=== PATIENT | female | born 1965 | race Caucasian/White ===

== ENCOUNTER → 2016-10-31 | Outpatient (CLI) | payer OTHER | LOC: FIMAGING 11:06 | PROVIDERS: ATTEND Obstetrics & Gynecology Gynecology | DX: Z12.31 Encounter for screening mammogram for malignant neoplasm of breast (principal); R10.2 Pelvic and perineal pain; N80.0 Endometriosis of uterus | CPT/HCPCS: G0202 ==

== ENCOUNTER 2017-07-25 09:45 | Emergency (ER) | payer OTHER ==
--- NOTE | 2017-07-25 10:04 | CPEKG ---
Heart Rate: 71 RR Interval: 845 P-R Interval: 148 QRSD Interval: 92 QT Interval: 392 QTC Interval: 426 P [place]: 54 QRS [place]: 59 T Wave [place]: -65 EKG Severity - ABNORMAL ECG - EKG Impression: SINUS RHYTHM EKG Impression: ABNORMAL T, CONSIDER ISCHEMIA, INFERIOR LEADS Electronically Signed By: Karen Gilman 25-Jul-2017 14:46:43
[2017-07-25 10:33] LABS: PLATELET COUNT 222 10^3/uL (150-400)
--- NOTE | 2017-07-25 10:34 | EDPHY ---
H & P Stated Complaint: Midsternal CP worsening x 10 days, pt concerned PE Time Seen by Provider: 07/25/17 10:06 HPI/ROS: CHIEF COMPLAINT: Chest pain HISTORY OF PRESENT ILLNESS: 52-year-old female with sarcoidosis presents with chest pain. Onset of intermittent chest pain 8 days ago. The pain is a pressure-like sensation in the left chest. The pain tends to occur randomly and is not associated with exertion. The pain does not increase with deep inspiration or movement. The most recent episode of pain started 2 days ago and has been persistent since then. No associated symptoms. Cardiac CT scan 3 years ago: Calcium score of 0. No recent illness, cough or fever. REVIEW OF SYSTEMS: complete 10 point ROS negative except at noted in the HPI - Medical/Surgical History Hx Asthma: No Hx Chronic Respiratory Disease: No Hx Diabetes: No Hx Cardiac Disease: No Hx Renal Disease: No Hx Cirrhosis: No Hx Alcoholism: No Hx HIV/AIDS: No Hx Splenectomy or Spleen Trauma: No Other PMH: sarcodosis, tosillectomy, closed reduction fibula, hand sx x2, cervical spine fusion, - Social History Smoking Status: Never smoked Alcohol Use: Sober Drug Use: None Additional Social History: - Physical Exam Exam: General Appearance: Alert, pleasant Eyes: Pupils equal and round, no conjunctival pallor or injection ENT, Mouth: Mucous membranes moist Neck: Normal inspection Respiratory: Tender over the left anterior chest wall that reproduces the pain , lungs are clear to auscultation Cardiovascular: Regular rate and rhythm, 2/6 diastolic murmur Gastrointestinal: Abdomen is soft and nontender Neurological: A&O, nonfocal, normal gait Skin: Warm and dry Extremities: Nontender, no pedal edema Psychiatric: Mood and affect normal Constitutional: Initial Vital Signs Temperature (C) 37.0 C 07/25/17 09:48 Heart Rate 72 07/25/17 09:48 Respiratory Rate 16 07/25/17 09:48 Blood Pressure 128/74 H 07/25/17 09:48 O2 Sat (%) 97 07/25/17 09:48 O2 Delivery Mode Room Air Allergies/Adverse Reactions: Sulfa (Sulfonamide Antibiotics) Allergy (Verified 03/08/15 15:18) Home Medications: Medication Instructions Recorded Estrogens,Conjugated 07/25/17 Minocycline HCl 07/25/17 Medical Decision Making - Diagnostics EKG Interpretation: EKG interpreted by me reveals normal sinus rhythm, rate 71, T-wave inversions in the inferior leads. Interpretation: Abnormal EKG Imaging Results: Imaging Impressions Chest X-Ray 07/25/17 10:07 Impression: No acute pulmonary disease. Findings and recommendations discussed with emergency department physician, Karen Gilman MD at 1020 hours on July 25, 2017. Final report concurs with initial preliminary interpretation. Chest/Thorax CTA 07/25/17 11:00 Impression: 1. No definite pulmonary thromboemboli. 2. No aortic aneurysm or dissection. 3. Mediastinal and bilateral hilar adenopathy consistent with sarcoidosis, similar to previous study. 4. Multiple 2-5 mm stable pulmonary nodules including right lower lobe cylindrical bronchiectasis, similar to previous study. 5. No acute pneumonia, pleural effusion, or pneumothorax. Findings and recommendations discussed with emergency department physician, Karen Gilman MD at 1225 hours on July 25, 2017. Final report concurs with initial preliminary interpretation. A test result has been communicated to a licensed care provider and documented in the [facility] Critical Result system on 07/25/2017 12:29, Message ID [id number]. Imaging: Discussed imaging studies w/ call or contact centre manager Radiologist, I viewed and interpreted images myself ED Course/Re-evaluation: Mirian presents with intermittent and prolonged chest pressure. Stat EKG reveals T-wave inversions in the inferior leads. I-STAT troponin is normal. Unclear etiology of the EKG T-wave inversions, but given that the chest pain has been present for greater than 36 hr, and troponin is normal I doubt that the pain is related to cardiac ischemia. I consulted with Dr. Nayak, will order an echocardiogram. ECHO per Dr. Nayak: moderate pulmonary HTN, mitral regurg, ONOFRE. CT pulmonary angiogram ordered to rule out pulmonary embolism or other serious etiology for chest pain. Fortunately, there is no evidence of pulmonary embolism. Physical exam suggests costochondritis, given point tenderness over the left anterior chest wall. She has a history of GERD and is unable to tolerate NSAID. Suggest Tylenol for pain. She will follow up with Cardiology for further evaluation. She will also follow up with Dr. Caballero in the office for further evaluation of pulmonary hypertension. I feel that she is safe and stable for discharge home. Differential Diagnosis: Differential diagnosis includes though it is not limited to pneumonia, pneumothorax, pulmonary embolism, aortic dissection, pericarditis, acute coronary syndrome. - Data Points Laboratory Results: Laboratory Results 07/25/17 10:00 07/25/17 10:00 07/25/17 07/25/17 07/25/17 10:03 10:00 10:00 WBC RBC Hgb Hct MCV MCH MCHC RDW Plt Count MPV Neut % (Auto) Lymph % (Auto) Pope % (Auto) Eos % (Auto) Baso % (Auto) Nucleat RBC Rel Count Absolute Neuts (auto) Absolute Lymphs (auto) Absolute Monos (auto) Absolute Eos (auto) Absolute Basos (auto) Absolute Nucleated RBC Immature Gran % Immature Gran # D-Dimer < 0.27 ug/mLFEU ug/mLFEU (0.00-0.50) Sodium 139 mEq/L mEq/L (135-145) Potassium 4.2 mEq/L mEq/L (3.3-5.0) Chloride 104 mEq/L mEq/L (97-110) Carbon Dioxide 25 mEq/l mEq/l (22-31) Anion Gap 10 mEq/L mEq/L (8-16) BUN 19 mg/dL mg/dL (7-23) Creatinine 1.2 mg/dL H mg/dL (0.6-1.0) Estimated GFR 47 Glucose 84 mg/dL mg/dL (70-100) Calcium 8.9 mg/dL mg/dL (8.5-10.4) POC Troponin I 0.01 ng/mL ng/mL (0.00-0.08) NT-Pro-B Natriuret Pep 352 pg/mL H pg/mL (0-125) 07/25/17 10:00 WBC 4.47 10^3/uL 10^3/uL (3.80-9.50) RBC 5.00 10^6/uL 10^6/uL (4.18-5.33) Hgb 14.9 g/dL g/dL (12.6-16.3) Hct 44.2 % % (38.0-47.0) MCV 88.4 fL fL (81.5-99.8) MCH 29.8 pg pg (27.9-34.1) MCHC 33.7 g/dL g/dL (32.4-36.7) RDW 12.6 % % (11.5-15.2) Plt Count 222 10^3/uL 10^3/uL (150-400) MPV 9.9 fL fL (8.7-11.7) Neut % (Auto) 54.1 % % (39.3-74.2) Lymph % (Auto) 26.4 % % (15.0-45.0) Pope % (Auto) 14.8 % H % (4.5-13.0) Eos % (Auto) 3.6 % % (0.6-7.6) Baso % (Auto) 0.9 % % (0.3-1.7) Nucleat RBC Rel Count 0.0 % % (0.0-0.2) Absolute Neuts (auto) 2.42 10^3/uL 10^3/uL (1.70-6.50) Absolute Lymphs (auto) 1.18 10^3/uL 10^3/uL (1.00-3.00) Absolute Monos (auto) 0.66 10^3/uL 10^3/uL (0.30-0.80) Absolute Eos (auto) 0.16 10^3/uL 10^3/uL (0.03-0.40) Absolute Basos (auto) 0.04 10^3/uL 10^3/uL (0.02-0.10) Absolute Nucleated RBC 0.00 10^3/uL 10^3/uL (0-0.01) Immature Gran % 0.2 % % (0.0-1.1) Immature Gran # 0.01 10^3/uL 10^3/uL (0.00-0.10) D-Dimer Sodium Potassium Chloride Carbon Dioxide Anion Gap BUN Creatinine Estimated GFR Glucose Calcium POC Troponin I NT-Pro-B Natriuret Pep Medications Given: Discontinued Medications Sodium Chloride (Ns) 500 mls @ 1,000 mls/hr IV EDNOW ONE PRN Reason: Protocol Stop: 07/25/17 11:29 Last Admin: 07/25/17 11:06 Dose: 500 mls Point of Care Test Results: Chemistry 07/25/17 10:03 POC Troponin I 0.01 ng/mL ng/mL (0.00-0.08) Departure - Departure Disposition: Home, Routine, Self-Care Clinical Impression: Chest pain Qualifiers: Chest pain type: other chest pain Qualified Code(s): R07.89 - Other chest pain Condition: Good Instructions: Chest Pain (ED), Pulmonary Arterial Hypertension (ED) Additional Instructions: Your ECHO shows pulmonary hypertension and mitral valve prolapse. Please f/u with cardiology. Referrals: Krys Hsu MD [Primary Care Provider] - As per Instructions Nghia Nayak MD [Medical Doctor] - As per Instructions (Call to make an appointment.)
[2017-07-25] MEDS ORDERED: NS 500 ML IV ONE (11:00)
[2017-07-25] MEDS ORDERED: IOPAMIDOL (ISOVUE 370) 100 ML BTL IV ONE (11:43)
--- NOTE | 2017-07-25 12:29 | ECHO ---
[email or web address] [address] [address] Main: [phone] Fax: Transthoracic Echocardiogram Name: BRUNA MEJIA MR#: [id number] Study Date: 07/25/2017 Study Time: 11:23 AM Date of : 1965 Age: 52 year(s) Height: 165.1 cm (65 in.) Weight: 63.5 kg (140 lb.) BSA: 1.7 m2 Gender: Female Examination: Echo Indication: Chest Pain Image Quality: Contrast: Requested by: Karen Gilman BP: 125 mmHg/82 mmHg Heart Rate: Rhythm: Indication: Chest Pain Procedure Staff Customer Success Director: Félix Martin RDCS Reading Physician: Nghia Nayak MD Requesting Provider: Conclusions: The patient was in sinus rhythm at the time of the study. Normal left ventricle size and systolic function. LVEF estimated at 60-65% and calculated at 63% by Bradshaw's. No evidence of segmental wall motion abnormalities . Grade 1 diastolic dysfunction. Normal right-sided chamber dimensions. Severe left atrial enlargement. Myxomatous appearing mitral valve with bileaflet anterior greater than posterior leaflet prolapse. This is associated with moderate eccentric regurgitation that hugs the lateral wall of the atrium. The remainder of the cardiac valves appear to be normal in structure and function. No evidence of pericardial effusion. Measurements: Chambers Valvular Assessment AV/MV Valvular Assessment TV/PV Normal Normal Normal Name Value Range Name Value Range Name Value Range Ao Argelia (MM): 3.4 cm (2.2 cm-3.7 AV Vmax: 1.21 m/s (1 m/s-1.7 TR Vmax: 3.12 mm/s ( - ) cm) m/s) TR PGmax: 39 mmHg ( - ) IVSd (2D): 0.8 cm (0.6 cm-1.1 AV maxP mmHg ( - ) syst. PAP: 44 mmHg ( - ) cm) LVOT Vmax: 0.84 m/s (0.7 m/s-1.1 PV Vmax: 0.71 m/s (0.6 m/s-0.9 LVDd (2D): 4.6 cm (3.9 cm-5.3 m/s) m/s) cm) MV E Vmax: 0.70 m/s ( - ) PV PGmax: 2 mmHg ( - ) LVDs (2D): 3.0 cm (2.1 cm-4 MV A Vmax: 0.74 m/s ( - ) cm) MV E/A: 0.95 ( - ) LVPWd (2D): 1.0 cm ( - ) MV maxP mmHg ( - ) LVEF (2D): 63 (>=54 %) MV meanP mmHg ( - ) Continued Measurements: Chambers Valvular Assessment AV/MV Valvular Assessment TV/PV Name Value Name Value Name Value LADs Lon.7 cm MV Annulus: 3.2 cm CVP (est.): 5 mmHg LA Area: 26.7 cm2 MV E/E' Septal: 11.70 Patient: BRUNA MEJIA Study Date: 07/25/2017 Page 1 of 2 11:23 AM LA Volume: 93 ml MV E/E' Lateral: 15.90 LA Volume Index: 54.7 ml/m2 MV VTI: 29.00 cm MR ERO: 0.130 cm2 MR PISA radius: 6 mm MR Reg. Volume: 28 ml MR Reg. Fraction: 12 % Findings: Left Ventricle: Normal size left ventricle. No LV hypertrophy. Normal global systolic LV function. EF is 63 %. No regional wall motion abnormality. Diastolic dysfunction is present. . Right Ventricle: Normal size right ventricle. Normal RV function. Left Atrium: The left atrium is moderately to severely dilated. Right Atrium: The right atrium is moderately dilated. Mitral Valve: Moderate mitral valve regurgitation is present. There is moderate prolapse of the anterior leaflet of the mitral valve. Aortic Valve: The aortic valve is tri-leaflet. The aortic valve is normal in appearance. Tricuspid Valve: The tricuspid valve is normal in appearance and function. Pulmonic Valve: The pulmonic valve is normal in appearance and function. Aorta: The aorta is normal. Pericardium: No pericardial effusion. (No Signature Object) Patient: BRUNA MEJIA Study Date: 07/25/2017 Page 2 of 2 11:23 AM [id number]
[2017-07-25 13:02] VITALS: BP 114/86
== END 2017-07-25 13:01 | disposition home or self-care (01) ==
DX: R07.89 Other chest pain (principal); E86.9 Volume depletion, unspecified
CPT/HCPCS: 84484-PO; Q9967

== ENCOUNTER 2017-08-26 09:45 | Day surgery (SDC) | payer OTHER ==
[2017-08-26] MEDS ORDERED: MIDAZOLAM 2 MG/2 ML VIAL IVP ONE (09:50)
[2017-08-26] MEDS ORDERED: NS 500 ML IV ONE (09:50)
[2017-08-26] MEDS ORDERED: BENZOCAINE UNIT DOSE SPRAY HURRICAINE MM ONE (09:50)
[2017-08-26] MEDS ORDERED: fentaNYL 100 MCG/2 ML INJ IVP ONE (09:50)
[2017-08-26] MEDS ORDERED: fentaNYL 100 MCG/2 ML INJ IVP PRN (10:58)
[2017-08-26] MEDS ORDERED: PROMETHAZINE HCL 25 MG/ML INJ IVP PRN (10:58)
[2017-08-26] MEDS ORDERED: NALOXONE HCL 0.4 MG/ML INJ IVP PRN (10:58)
[2017-08-26] MEDS ORDERED: DEXAMETHASONE 4 MG/ML VIAL IVP PRN (10:58)
[2017-08-26] MEDS ORDERED: NS 500 ML IV PRN (10:58)
[2017-08-26] MEDS ORDERED: ONDANSETRON 4 MG/2 ML VIAL IVP PRN (10:58)
--- NOTE | 2017-08-26 10:58 | PDANEPAE ---
ANE Past Medical History - Cardiovascular History Hx Hypertension: No Hx Arrhythmias: No Hx Coronary Artery / Peripheral Vascular Disease: No Hx CHF / Valvular Disease: No Cardiovascular History Comment: MITRAL VALVE PROLAPSE - Pulmonary History Hx COPD: No Hx Asthma/Reactive Airway Disease: No Hx Recent Upper Respiratory Infection: No Hx Oxygen in Use at Home: No Hx Sleep Apnea: No - Neurologic History Hx Cerebrovascular Accident: No Hx Seizures: No Hx Dementia: No - Endocrine History Hx Diabetes: No Obesity: no - Renal History Hx Renal Disorders: No - Liver History Hx Hepatic Disorders: No - Neurological & Psychiatric Hx Hx Neurological and Psychiatric Disorders: No Neurological / Psychiatric History Comment: LEXAPRO - Cancer History Hx Cancer: No - Congenital Disorder History Hx Congenital Disorders: No - GI History Hx Gastrointestinal Disorders: No - Other Health History Other Health History: NEG - Chronic Pain History Chronic Pain: No - Surgical History Prior Surgeries: BRONCHOSCOPY. COLONSOCOPY. TONSILLECTOMY. JAW PROCEDURE. FX FEMUR ANE Review of Systems Review of Systems: ANE Patient History - Allergies Allergies/Adverse Reactions: Sulfa (Sulfonamide Antibiotics) Allergy (Verified 08/20/17 10:40) Rash - Home Medications Home Medications: Calcium Carbonate [Tums 500MG (*)] 500 mg PO DAILY PRN 08/20/17 [Last Taken Unknown] Herbals/Supplements -Info Only 1 ea PO DAILY 08/20/17 [Last Taken Unknown] Magnesium Oxide [Magnesium Oxide 400 mg (*)] 400 mg PO Q2D@21 08/20/17 [Last Taken Unknown] Ranitidine HCl [Zantac] 150 mg PO HS 08/20/17 [Last Taken Unknown] - Anes Hx Anes Hx: no prior problems - Smoking Hx Smoking Status: Never smoked ANE Labs/Vital Signs - Vital Signs Height: 168 cm Weight: 60 kg ANE Physical Exam - Airway Neck exam: FROM Mallampati Score: Class 1 Mouth exam: normal dental/mouth exam - Pulmonary Pulmonary: no respiratory distress, no rales or rhonchi, clear to auscultation - Cardiovascular Cardiovascular: irregularly irregular - ASA Status ASA Status: III ANE Anesthesia Plan Anesthesia Plan: GA with mask
[2017-08-26] MEDS ORDERED: PROPOFOL 200 MG/20 ML VIAL ONE (11:00)
--- NOTE | 2017-08-26 11:10 | PDGENHP ---
History & Physical Chief Complaint: Mitral regurgitation, chest pain. History of Present Illness: Atypical chest. TTE consistent with mod-severe MR. Pertinent Past, Social, Family History: Pulmonary sarcoidosis. Relevant Physical Exam: 2/6 MR murmur. Cardiorespiratory Assessment: Stable for TIFFANY.
--- NOTE | 2017-08-26 11:54 | POSTANESTH ---
Post Anesthetic Evaluation Cardiovascular Status: Normal, Stable Respiratory Status: Normal, Stable, Similar to Pre-op Cond. Level of Consciousness/Mental Status: Can Participate in Eval, Mildly Sleepy, Arousable Pain Control: Adequate, Prn Tx Ordered Nausea/Vomiting Control: Adequate, Prn Tx Ordered Complications Possibly Related to Anesthesia: None Noted
--- NOTE | 2017-09-20 15:58 | ECHO ---
[email or web address] [address] [address] Main: [phone] Fax: Transesophageal Echocardiography Name: BRUNA MEJIA MR#: [id number] Study Date: 08/26/2017 Study Time: 10:56 AM Date of : 1965 Age: 52 year(s) Height: ( ) Weight: ( ) BSA: Gender: Female Examination: TIFFANY Indication: Evaluate mitral valve Image Quality: Adequate Contrast: Requested by: Nghia Nayak Heart Rate: Rhythm: BP: / Procedure Staff Alteration Manager: Toshia Weiner RDCS Reading Physician: Nghia Nayak MD Requesting Provider: TIFFANY Exam Details Patient Consent: Risks, alternatives of procedure explained to patient, informed consent obtained. Conclusions: The patient was in sinus rhythm at the time of the study. Normal left ventricular size and systolic function. LVEF estimated at 60-65% without segmental wall motion abnormalities. Normal RV and RA dimensions. The left atrium appears to be severely dilated. The interatrial septum is bowed to the right suggesting elevated left atrial pressures. There is a color flow Doppler signal high in the interatrial septum consistent with an ostium primum atrial septal defect. This is a small color flow signal. The mitral valve is myxomatous in appearance. There is moderate bileaflet mitral valve prolapse associated with moderate to severe mitral regurgitation. The aortic valve is structurally normal with normal function. The tricuspid valve is also structurally normal with normal function with [id number] tricuspid regurgitation. Measurements: Chambers Valvular Assessment AV/MV Valvular Assessment TV/PV Normal Normal Normal Name Value Range Name Value Range Name Value Range Visual EF: 60 % TR Vmax: 1.95 mm/s ( - ) TR PGmax: 15 mmHg ( - ) syst. PAP: 20 mmHg ( - ) Additional Measurements: Chambers Valvular Assessment AV/MV Valvular Assessment TV/PV Name Value Name Value Name Value LADs Lon.5 cm MR ERO: 0.360 cm2 CVP (est.): 5 mmHg Patient: BRUNA MEJIA Study Date: 08/26/2017 Page 1 of 2 10:56 AM LA Area: 20.2 cm2 MR PISA radius: 9 mm LA Volume: 68 ml MR Reg. Volume: 41 ml Findings: Left Ventricle: Normal size left ventricle. No LV hypertrophy. Normal global systolic LV function. The ejection fraction is visually estimated to be 60 %. No regional wall motion abnormality. Unable to assess diastolic dysfunction. Right Ventricle: Normal size right ventricle. Normal RV function. Left Atrium: The left atrium is severely dilated. An agitated saline study was performed and was negative for intracardiac shunting. Left Atrial Appendage: The left atrial appendage is unilobular. Good color flow doppler in the left atrial appendage. Normal PW-Doppler flow pattern. No thrombus in left appendage. There appears to be a sinus venosus atrial septal defect. Right Atrium: The right atrium is normal in size. Mitral Valve: There is bileaflet mitral valve prolapse. Severe mitral regurgitation seen with eccentric jet. Pulmonary vein reversal noted. PISA calculations for the mitral regurgitation jet include an MR volume of 51 m. Aortic Valve: The aortic valve is tri-leaflet. There is no significant aortic valve regurgitation. No aortic valve stenosis is present. Tricuspid Valve: The tricuspid valve is normal in appearance and function. Mild to moderate tricuspid valve regurgitation. The pulmonary artery pressure is normal. Pulmonic Valve: The pulmonic valve is normal in appearance and function. There is no pulmonic regurgitation seen. Aorta: The aorta is normal. Pericardium: No pericardial effusion. No pleural effusion. l1n (No Signature Object) Patient: BRUNA MEJIA Study Date: 08/26/2017 Page 2 of 2 10:56 AM [id number]
== END 2017-08-26 13:27 | disposition home or self-care (01) ==
LOC: FCATH 09:45
PROVIDERS: ATTEND Internal Medicine Cardiovascular Disease
PROC: B246ZZ4 Ultrasonography of Right and Left Heart, Transesophageal (ICD-10-PCS; principal; 2017-08-26)
DX: Z01.810 Encounter for preprocedural cardiovascular examination (principal); I34.0 Nonrheumatic mitral (valve) insufficiency; I34.1 Nonrheumatic mitral (valve) prolapse; R07.9 Chest pain, unspecified; D25.9 Leiomyoma of uterus, unspecified; D86.9 Sarcoidosis, unspecified; R01.1 Cardiac murmur, unspecified; Z82.49 Family history of ischemic heart disease and other diseases of the circulatory system; Z88.2 Allergy status to sulfonamides
CPT/HCPCS: J2704

== ENCOUNTER 2017-08-31 05:44 | Observation (INO) | payer OTHER ==
--- NOTE | 2017-08-31 00:29 | GHP ---
[f rep st] PREOP HISTORY AND PHYSICAL DATE OF ADMISSION: 08/31/2017 DATE OF SURGERY: Slated for 08/31/2017 on the gynecology service. HISTORY OF PRESENT ILLNESS: The patient is a 52-year-old white female who has had increasing symptoms of pelvic pressure and pelvic cramping since February 2016. The patient reports symptoms increasing enough to where she will not do normal physical exercise with running due to the symptoms of the pressure. For years, this was occurring in the premenstrual time before her menstrual cycles, and the patient now has not had a menstrual cycle since January 2017. The patient had an ultrasound performed which showed possible evidence of adenomyosis. The patient also has had persistent positive type 18 HPV with atypical Pap smears. For cancer risk reduction, the patient elected to proceed with hysterectomy as well as for the symptoms of the pelvic pressure. The patient has been counseled as to the risks and benefits of hysterectomy, and the patient wants to proceed with total laparoscopic hysterectomy. As the patient is menopausal, now she wants to also proceed with a BSO. Risks and benefits will be reviewed with the patient at the bedside on the day of surgery , and consent form will be signed then. PAST MEDICAL HISTORY: Sarcoidosis and the patient has bilateral hilar adenopathies. The patient recently had a chest CT on July 25 which revealed stable mediastinal and hilar adenopathies. The patient was seen at that time in the ER for atypical chest pains with a history of mitral valve prolapse. The patient had followup with Dr. 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 The patient with [id number] prolapse. The patient was felt to be cleared by Dr. Nayak to undergo anesthesia for surgery. 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 Mendoza every 3 months. 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 Recent colposcopy in June 2017 showed 2 biopsies negative. History of HSV. Osteopenia. PAST SURGICAL HISTORY: D and C in 2009, anterior cervical diskectomy and fusion of C6-C7 in February 2015, TABs in 1983 and 1988, tonsils and adenoids removed, hand surgery age 7. PAST OBSTETRIC HISTORY: A4 with SVDs at term x2, TABs in 1983 and , SAB in 2012, and a D and C for a missed AB in 2009. ALLERGIES: Sulfa. CURRENT MEDICATIONS: Climara Pro patch 0.045/0.015 mg, vitamin D, Tums, Ashwagandha daily. SOCIAL HISTORY: The patient has never been a smoker or used illicit drugs. The patient is and has 2 children. 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 The patient has caffeine every day and occasional alcohol use. RECENT STUDIES PERFORMED: Labs in July showing a CBC that was normal and complete metabolic panel that was normal with a creatinine of 1.2. Ultrasound that was performed in June 2017 shows a uterus 8 x 6 x 6 cm with an endometrial thickness of 0.37 cm. Two small fibroids less than 1.2 cm. Ovaries bilaterally were normal. A heterogeneous texture consistent with adenomyosis. CT of the chest performed in July 2017 as well as a recent echo. PHYSICAL EXAMINATION: GENERAL: The patient is a well-developed, well- nourished white female in no acute physical distress. VITAL SIGNS: The patient is afebrile. Height 66 inches, weight 141 pounds. Blood pressure 102/ 70. RESPIRATORY: Clear to auscultation bilaterally. ABDOMEN: Soft and nontender. PELVIC: With a small, nontender, mobile uterus. No adnexal masses. EXTREMITIES: Nontender with no edema. ASSESSMENT: Pelvic pressure, persistent positive type 18 human papillomavirus, and persistent abnormal Papanicolaou smears. PLAN: Will proceed with total laparoscopic hysterectomy, bilateral salpingo- oophorectomy on 08/31/2017 on the gynecology service. Patient will receive preoperative antibiotics and will sign consent form at the bedside. /[id number]/MODL MTDD
[2017-08-31] MEDS ORDERED: ceFAZolin 2 GM/DEXTROSE 100 ML IV ONE (06:06)
[2017-08-31] MEDS ORDERED: LR 1,000 ML IV ONE (06:07)
[2017-08-31] MEDS ORDERED: SURGIFLO MATRIX KIT WITH THROMBIN 8 ML TP ONE ×2 (06:45→07:06)
[2017-08-31] MEDS ORDERED: BUPIVACAINE 0.25% 30 ML SDV ONE ×2 (06:45→07:06)
--- NOTE | 2017-08-31 06:55 | PDANEPAE ---
MIKI History of Present Illness tomas MIKI Past Medical History - Cardiovascular History Hx Hypertension: No Hx Arrhythmias: No Hx Chest Pain: No Hx Coronary Artery / Peripheral Vascular Disease: No Hx CHF / Valvular Disease: No Hx Palpitations: No Cardiovascular History Comment: MITRAL VALVE PROLAPSE - Pulmonary History Hx COPD: No Hx Asthma/Reactive Airway Disease: No Hx Recent Upper Respiratory Infection: No Hx Oxygen in Use at Home: No Hx Sleep Apnea: No Sleep Apnea Screening Result - Last Documented: Negative - Neurologic History Hx Cerebrovascular Accident: No Hx Seizures: No Hx Dementia: No - Endocrine History Hx Diabetes: No Hypothyroid: No Hyperthyroid: No - Renal History Hx Renal Disorders: No - Liver History Hx Hepatic Disorders: No - Neurological & Psychiatric Hx Hx Neurological and Psychiatric Disorders: No Neurological / Psychiatric History Comment: LEXAPRO - Cancer History Hx Cancer: No - Congenital Disorder History Hx Congenital Disorders: Yes Congenital History Comment: mitral valve prolapse - GI History Hx Gastrointestinal Disorders: Yes Gastrointestinal History Comment: reflux - Other Health History Other Health History: sarcoidosis. fibroids/leiomyoma of uterus - Chronic Pain History Chronic Pain: Yes (neck) - Surgical History Prior Surgeries: BRONCHOSCOPY. COLONSOCOPY. TONSILLECTOMY. JAW PROCEDURE. FX FEMUR ANE Review of Systems Review of systems is: negative Review of Systems: - Exercise capacity Exercise capacity: >=4 METS METS (RN): 5 METS ANE Patient History - Allergies Allergies/Adverse Reactions: Sulfa (Sulfonamide Antibiotics) Allergy (Verified 08/20/17 10:40) Rash - Home Medications Home Medications: Calcium Carbonate [Tums 500MG (*)] 500 mg PO DAILY PRN 08/20/17 [Last Taken 3 Days Ago ~08/28/17] Herbals/Supplements -Info Only 1 ea PO DAILY 08/20/17 [Last Taken 3 Days Ago ~] Magnesium Oxide [Magnesium Oxide 400 mg (*)] 400 mg PO Q2D@21 08/20/17 [Last Taken 3 Days Ago ~08/28/17] Ranitidine HCl [Zantac] 150 mg PO HS 08/20/17 [Last Taken 08/30/17 20:00] - NPO status NPO Status: no food or drink >8 hours NPO Since - Liquids (Date): 08/30/17 NPO Since - Liquids (Time): 23:00 NPO Since - Solids (Date): 08/30/17 NPO Since - Solids (Time): 20:00 - Anes Hx Anes Hx: no prior problems - Smoking Hx Smoking Status: Never smoked - Alcohol Use Alcohol Use: Rarely - Family Anes Hx Family Anes Hx: none Family Hx Anesthesia Complications: none ANE Labs/Vital Signs - Vital Signs Blood Pressure: 132/85 Heart Rate: 65 Respiratory Rate: 15 O2 Sat (%): 99 Height: 167.64 cm Weight: 60.328 kg ANE Physical Exam - Airway Neck exam: FROM Mallampati Score: Class 2 Mouth exam: normal dental/mouth exam - Pulmonary Pulmonary: no respiratory distress - Cardiovascular Cardiovascular: regular rate and rhythym, systolic murmur - ASA Status ASA Status: II ANE Anesthesia Plan Anesthesia Plan: general endotracheal anesthesia
[2017-08-31] MEDS ORDERED: MIDAZOLAM 2 MG/2 ML VIAL IVP ONE (07:00)
[2017-08-31] MEDS ORDERED: METHYLENE BLUE 0.5% 50 MG/10 ML AMP ONE (07:06)
[2017-08-31] MEDS ORDERED: ROCURONIUM 100 MG/10 ML VIAL ONE (07:10)
[2017-08-31] MEDS ORDERED: LIDOCAINE 2% 5 ML SDV ONE (07:10)
[2017-08-31] MEDS ORDERED: DEXAMETHASONE 4 MG/ML VIAL ONE (07:10)
[2017-08-31] MEDS ORDERED: PROPOFOL 200 MG/20 ML VIAL ONE (07:10)
[2017-08-31] MEDS ORDERED: fentaNYL 100 MCG/2 ML INJ ONE ×3 (07:10→11:01)
[2017-08-31] MEDS ORDERED: ONDANSETRON 4 MG/2 ML VIAL ONE (07:10)
[2017-08-31 07:12] LABS: PLATELET COUNT 197 10^3/uL (150-400)
[2017-08-31] MEDS ORDERED: KETOROLAC 30 MG/1 ML SDV ONE (10:09)
[2017-08-31] MEDS ORDERED: SUGAMMADEX SODIUM 200 MG/2 ML VIAL IVP ONE (10:10)
[2017-08-31] MEDS ORDERED: IBUPROFEN 600 MG TAB PO PRN (10:49)
--- NOTE | 2017-08-31 10:55 | POSTOPPROG ---
Post Op Note Date of Operation: 08/31/17 Surgeon: Amanda Fuentes Cadd Drafter: Sonya Oliver MD Anesthesiologist: Dayton Casiano MD Anesthesia: GET(General Endotracheal) Pre-op Diagnosis: pelvic pressure, persistent HPV and abnormal paps Post-op Diagnosis: same Indication: Type 18 HPV, ZELDA III, anal polyps, sis 42 with anal CA, pressure/adeno Procedure: TLH, BSO, cystoscopy Findings: small ut, ov and tubes all normal. endo scarring and scarred bladder Inf/Abcess present in the surg proc area at time of surgery?: No Depth: Organ Space EBL: 100-500 (150) Total fluids administered: 1000 Complications: none Specimen(s): ut, tubes and ovaries
[2017-08-31] MEDS ORDERED: MEPERIDINE 25 MG/0.5 ML AMP IVP PRN (10:58)
[2017-08-31] MEDS ORDERED: PROMETHAZINE HCL 25 MG/ML INJ IVP PRN (10:58)
[2017-08-31] MEDS ORDERED: oxyCODONE IR 5 MG TAB PO PRN (10:58)
[2017-08-31] MEDS ORDERED: ONDANSETRON 4 MG/2 ML VIAL IVP PRN (10:58)
[2017-08-31] MEDS ORDERED: ACETAMINOPHEN 500 MG TAB PO PRN (10:58)
[2017-08-31] MEDS ORDERED: NALOXONE HCL 0.4 MG/ML INJ IVP PRN (10:58)
[2017-08-31] MEDS ORDERED: HYDROCODONE/APAP 5/325 TAB PO PRN (10:58)
[2017-08-31] MEDS ORDERED: LR 1,000 ML IV SCH (11:00)
--- NOTE | 2017-08-31 11:00 | POSTANESTH ---
Post Anesthetic Evaluation Cardiovascular Status: Normal, Stable Respiratory Status: Normal, Stable Level of Consciousness/Mental Status: Can Participate in Eval Pain Control: Adequate, Prn Tx Ordered Nausea/Vomiting Control: Adequate, Prn Tx Ordered Complications Possibly Related to Anesthesia: None Noted
[2017-08-31] MEDS: fentaNYL 100 MCG/2 ML INJ IVP PRN ×2 (11:02→11:12)
[2017-08-31] MEDS ORDERED: HYDROmorphONE/DILAUDID 2 MG/ML INJ ONE (11:26)
[2017-08-31] MEDS: HYDROmorphONE/DILAUDID 1 MG/ML INJ IVP PRN ×2 (11:29→11:46)
[2017-08-31] MEDS: FAMOTIDINE 20 MG TAB PO SCH ×2 (11:30→18:33)
[2017-08-31] MEDS: HYDROCODONE/APAP 5/325 TAB PO PRN ×2 (13:46→19:17)
[2017-08-31] MEDS ORDERED: ENOXAPARIN 30 MG/0.3 ML SYR SC SCH (18:00)
[2017-08-31 18:25] VITALS: BP 101/68
--- NOTE | 2017-08-31 18:39 | SOAPPROG ---
SOAP Progress Note Assessment/Plan: Assessment: POD 0 s/p TLH, BSO routine care and feeling better after good void Plan: Desires d/c. RTC 3 wks, script for Cindy 08/31/17 18:34 Subjective: Pt states she is feeling better since able to empty bladder better. [place] the earlier pressure might've been a bladder spasm -- really didn't feel like pain. No vag bleeding. has voided 900cc since from PACU at 12:30. Yogi reg diet. No nausea. Desires d/c Objective: Vital Signs Temp Pulse Resp BP Pulse Ox 36.7 C 61 14 101/68 94 08/31/17 18:23 08/31/17 18:23 08/31/17 18:23 08/31/17 18:23 08/31/17 18:23 Laboratory Results 08/31/17 06:25 08/31/17 06:25 08/30/17 08/31/17 09/01/17 05:59 05:59 05:59 Intake Total 3000 Output Total 1425 Balance 1575 Physical Exam - Physical Exam General Appearance: WD/WN Abdomen: non-tender (approp post op tenderness), soft, other (incisions x 3 CDI - steristrips intact, no bruising) Pelvic Exam: vaginal bleeding (none) Skin: normal color, warm/dry Extremities: non-tender, pedal edema (none) Neuro/Psych: alert, normal mood/affect ICD10 Worksheet Patient Problems: Problems Problem Status Onset S/P bilateral salpingo-oophorectomy Acute S/P laparoscopic hysterectomy Acute
[2017-08-31] MEDS ORDERED: ENOXAPARIN 30 MG/0.3 ML SYR SC ONE (21:00)
--- NOTE | 2017-09-16 13:03 | GOP ---
[f rep st] OPERATIVE REPORT DATE OF OPERATION: 08/31/2017 SURGEON: Amanda Fuentes MD SHEET ROCK NAILER: Sonya Oliver MD ANESTHESIA: General endotracheal anesthesia. ANESTHESIOLOGIST: Dayton Casiano MD PREOPERATIVE DIAGNOSIS: Pelvic pressure, persistent human papillomavirus and abnormal Pap smears. POSTOPERATIVE DIAGNOSIS: Pelvic pressure, persistent human papillomavirus and abnormal Pap smears. PROCEDURE PERFORMED: Total laparoscopic hysterectomy, bilateral salpingo-oophorectomy, cystoscopy. FINDINGS: Small uterus, ovaries, and tubes bilaterally. Endometrial scarring and scarring to the an terior bladder peritoneum. No infection or abscess present during the surgery. SPECIMENS: Uterus, tubes, and ovaries bilaterally. The patient was cleaned off and taken out of position and then taken to the recovery room in stable c ondition after extubation. ESTIMATED BLOOD LOSS: 150 mL. INDICATIONS: The patient is a 52-year-old white female with increasing symptoms of pelvic pressure a nd pelvic cramping since February 2016. The patient reports now this interferes with normal physical exercise and the patient is limiting her running due to the symptoms of pressure. The patient was sy mptomatic for years during the PMS time, but now the symptoms are persistent as the patient has enter ed menopause. The patient had an ultrasound which was normal, but possible evidence of adenomyosis. The patient also has had persistent type 18 HPV with atypical Pap smears. The patient has a signifi cant history of anal HPV as well and a family history of anal cancer. The patient wants the risk red uction of cancer with a total hysterectomy. She has been counseled as to the risks and benefits of s urgery and wants to proceed with laparoscopic hysterectomy, BSO. The patient also has a significant history of sarcoidosis and recent issues with atypical chest pain and has [id number] prolapse with myxomatous mitral valve disease. DESCRIPTION OF PROCEDURE: The patient was taken to the operating room where following satisfactory g eneral endotracheal anesthesia, the patient was placed in dorsal lithotomy position for laparoscopy. The patient received antibiotics prior to coming to the operating room and has SCDs on the lower ext remities for DVT prophylaxis. The patient's perineum, vagina and abdomen were prepped and the patien t draped in the usual sterile manner for laparoscopy. A Mendosa catheter was placed within the bladder and draining clear urine. The surgery was initiated vaginally, and a sterile speculum was placed. A tenaculum was placed on the anterior lip of the cervix and gentle traction applied. The cervix was slowly dilated up to #6 Hegar dilator. A medium size balloon tip was used on the ALLIE uterine manip ulator. However, there was difficulty placing this into the uterine fundus. It was decided to proce ed first with placing the laparoscopic camera for good visualization and safety. An infraumbilical i ncision was made along the natural crease line after the area was anesthetized with 0.25% Marcaine. The anterior abdominal wall was elevated, and a Veress needle was introduced into the abdominal cavit y, and CO2 was used to insufflate the abdomen after confirmation of low opening pressures. The abdom inal cavity was well insufflated, and then the 5 mm trocar was placed through the umbilical incision. The laparoscopic camera was introduced through this port and confirmed intra-abdominal position. T he right lower quadrant incision was made after some local anesthetic, and a 5 mm trocar was placed t hrough this port with direct visualization. Additionally, the 10 mm trocar was introduced through th e left lower quadrant in a similar manner under visualization. The patient was positioned in [place], and the bowel was pushed up out of the operative area. The uterus was well visualized and wa s free from adhesions. The liver edge was inspected and appeared normal as well as the appendix. Fo llowing this, then the ALLIE uterine manipulator was placed without any problems. An attempt was made to fill the balloon tip in the uterine cavity and it would not allow distention. With an inability to fill the balloon tip, then the cervix was grasped with a tenaculum through the cervical cup on the ALLIE uterine manipulator. This maintained good traction on the uterus, and the ALLIE was able to man ipulate the uterus well. Following this, the abdominal portion of the procedure was continued. I go t good upward manipulation of the uterus, and the adnexa was well visualized. Bilaterally, the tubes and ovaries appeared normal. Surgery was initiated on the patient's left. The ureters were visuali zed bilaterally and were well below the operative areas. The LigaSure was used to cauterize and quezada sect the infundibulopelvic pedicle as well as along the mesosalpinx and the round ligament. Addition al dissection was made down to the internal os. The visceral peritoneum was reflected off over the c ervix and the peritoneum pushed down to separate the bladder off the cervix. With the bladder pushed down adequately, then the uterine vessel on the patient's left was cauterized. An identical procedu re was performed along the right aspect of the uterus, the infundibulopelvic pedicle, roun d ligament and broad ligament. Again, the ureter was visualized down well out of the operative area. The visceral peritoneal reflection was completed to develop the bladder flap and push this down out of the area. The uterine vessels on the patient's right then were cauterized and transected. The c up on the ALLIE vaginal retractor could easily be identified circumferentially around the cervix. Wit h continued cephalad pressure on the ALLIE retractor, then the hook attachment on the LigaSure was use d to circumscribe around the cervix. This off the tissue easily. Following this, then the uterus, tubes, and ovaries were all removed vaginally intact. The specimen was sent off to [facility]. A laparotomy pad in a glove was used as a vaginal occluder to maintain insufflation. The uterosa cral ligaments could be easily identified. There were areas of scarring that looked consistent with endometrial implants along the lower peritoneal surface and the posterior cul-de-sac. There was also a denser plane off the bladder that appeared like it might be endometriosis scarring. Ca re was taken to pull the vaginal cuff away from the bladder area for closure of the cuff. The closur e began on the right angle and the angle stitch also incorporated the uterosacral ligament. The vagi nal cuff was closed with a running layer of 0 Vicryl with a V-Loc stitch placed with the Endo Stitch instrument. Again, the vaginal mucosa was identified with the closure and the anterior vaginal cuff was pulled away from the bladder area. There was good closure of the cuff, and after the cuff was cl osed to the left angle, then there was additional securing stitches back toward the midline. There w as minimal bleeding. Irrigation and suction were performed. The ureters both appeared to be perista lsing normally. Due to the closeness of the bladder to the vaginal cuff, it was decided to proceed w ith cystoscopy to ensure there were no stitches through the bladder trigone area. The cystoscope was done next prior to the abdominal closure. The interior of the bladder was well visualized, and both ureteral orifices were seen and normally extruding clear urine. There were no stitches into the yehuda dder mucosa noted or tenting abnormally. The trigone was naturally very close with both ureteral dario fices, anatomically close to the midline. No unnatural tenting was noted or concern for any close st itches. Mendosa catheter was replaced into the bladder. Following this, the laparoscopic portion was completed. First, the 10 mm site was closed at the fascial level with the fascial closure device uti lizing an 0 Vicryl stitch. This closed the fascia well. Following this, then the other 5 mm trocar was removed under visualization. There was no bleeding noted at the vaginal cuff area or along the o ther pedicles. CO2 was allowed to escape through the umbilical port, and then that umbilical trocar was removed without problems. The 2 smaller incisions were closed with a subcuticular horizontal mat tress stitch of 4-0 Monocryl. The left lower quadrant port was closed with a running layer of 4-0 Mo nocryl. Mastisol and Steri-Strips were used over the incisions, and then Band-Aids were applied. Va ginally, a sponge stick was introduced and there was no bleeding from the cuff. Mendosa catheter slime nued to drain clear urine. TOTAL IV FLUIDS: 1000 mL. COMPLICATIONS: None. /[id number]/MODL
== END 2017-08-31 19:24 | disposition home or self-care (01) ==
LOC: F3N 05:44 → FOB 12:12
PROVIDERS: ADMIT Obstetrics & Gynecology; ATTEND Obstetrics & Gynecology
DX: N80.0 Endometriosis of uterus (principal); D25.9 Leiomyoma of uterus, unspecified; M54.2 Cervicalgia
CPT/HCPCS: 58150; G0378; J0690; J1100; J1170; J1650; J1885; J2250; J2405; J2704; J3010; Q9968

== ENCOUNTER → 2018-01-01 | Outpatient (CLI) | payer OTHER | LOC: FIMAGING 11-19 12:51 | PROVIDERS: ATTEND Internal Medicine | DX: Z12.31 Encounter for screening mammogram for malignant neoplasm of breast (principal) ==

== ENCOUNTER → 2018-02-01 | Outpatient (CLI) | payer OTHER | LOC: FIMAGING 08:42 | PROVIDERS: ATTEND Internal Medicine Cardiovascular Disease | DX: I34.1 Nonrheumatic mitral (valve) prolapse (principal) ==

== ENCOUNTER 2018-02-20 20:34 | Emergency (ER) | payer OTHER ==
[2018-02-20] MEDS ORDERED: NS 500 ML IV ONE (20:40)
[2018-02-20] MEDS ORDERED: ASPIRIN 81 MG CHEWABLE TAB PO ONE (20:40)
[2018-02-20 21:00] LABS: PLATELET COUNT 262 10^3/uL (150-400)
--- NOTE | 2018-02-20 21:02 | EDPHY ---
H & P Time Seen by Provider: 02/20/18 20:40 HPI/ROS: HPI Chest discomfort. 52-year-old female by private vehicle. She has a history of a mitral valve replacement 1 month ago at the [facility]. She has been doing well. She reports about 2-3 hours prior to arrival here she developed a sensation of discomfort in her anterior upper mid chest which she describes as a vague pressure-like sensation which radiates up into her neck. She also has had some tightness in her left calf. She denies any associated shortness of breath. No cough. No fever. No other complaints. ROS: Constitutional: No fever, no chills. No weakness. Eyes: No discharge. No changes in vision. ENT: No sore throat. No nasal congestion or rhinorrhea. Respiratory: No cough. No shortness of breath. Cardiac: No chest pain, no palpitations. Gastrointestinal: No abdominal pain, no vomiting, no diarrhea. Genitourinary: No hematuria. No dysuria or increased frequency with urination. Musculoskeletal: No back pain. No neck pain. No myalgias or arthralgias. Skin: No rashes. Neurological: No headache. No focal weakness or altered sensation. Past medical history: Anterior cervical diskectomy, sarcoidosis, as above. Her venture capitalist is Dr. Facundo Nayak. Social history: Nonsmoker and no alcohol. Here by herself. Physical Exam: General Appearance: Alert, no distress. This patient is responding to questions appropriately and in full sentences. This patient appears well- hydrated and well-nourished. Eyes: Pupils equal and round no pallor or injection. No lid edema, erythema or injection. Respiratory: There are no retractions, lungs are clear to auscultation with good air movement bilaterally. Cardiovascular: Regular rate and rhythm. No murmur appreciated. Gastrointestinal: Abdomen is soft and nontender, no masses, bowel sounds normal. No focal tenderness at McBurney's point. No Wiggins sign. Neurological: Motor sensory function is grossly intact. Cranial nerves are normal. Gait is normal. Skin: Warm and dry, no rashes. Musculoskeletal: Neck is supple and nontender. Extremities are symmetrical. No palpable cords, negative Homans sign. All joints range without pain or impingement. Psychiatric: No agitation. No depression. Database: EKG: EKG time is 8:48 p.m.; EKG shows a narrow complex normal sinus rhythm with a ventricular rate of 97. This is close to her baseline. The MT, QRS, QT intervals are within normal limits. There are no ST-T wave changes indicative of ischemic or injury pattern. No evidence of right heart strain. Interpreted by me. Imaging: Chest x-ray AP portable; the cardiac mediastinal silhouette is unremarkable. Mild tenting of the right hemidiaphragm is noted. Improved from comparison x- ray from February 01. Likely atelectasis. Otherwise, no evidence of infiltrate or pneumothorax. No acute cardiopulmonary disease process noted. Interpreted by me. Left lower extremity Doppler ultrasound: Negative. Results were discussed with staff radiologist Dr. Rl Mccurdy. Procedures: Emergency department course: Triage vital signs reviewed and are normal. IV was placed. She was placed on a environmental monitoring technician. EKG obtained and reviewed by myself. She was given 324 mg of chewed aspirin. 9:35 p.m., the patient was re-evaluated, she is resting comfortably at this time. She denies any complaints currently. I discussed the results of her diagnostic workup in the emergency department. I discussed admitting her for observation overnight and serial troponins. 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 She does not want to be admitted. She feels comfortable going home. I feel this is reasonable. Follow-up and return to emergency department precautions were reviewed with her. All of her questions were answered. She was discharged from the emergency department in good condition. Differential Diagnosis: The differential diagnosis on this patient includes but is not limited to esophageal spasm, anxiety reaction. Aortic dissection, acute coronary syndrome , pulmonary embolism, DVT unlikely. This represents a partial list of diagnoses considered. These considerations are based on history, physical exam , past history, reassessment and diagnostic testing. Smoking Status: Never smoked Constitutional: Initial Vital Signs Temperature (C) 36.4 C 02/20/18 20:36 Heart Rate 98 02/20/18 20:36 Respiratory Rate 17 02/20/18 20:36 Blood Pressure 123/82 H 02/20/18 20:36 O2 Sat (%) 98 02/20/18 20:36 O2 Delivery Mode Room Air Allergies/Adverse Reactions: Sulfa (Sulfonamide Antibiotics) Allergy (Verified 02/20/18 20:38) Rash Home Medications: Medication Instructions Recorded Aspirin 02/20/18 Metoprolol Succinate 02/20/18 Medical Decision Making - Diagnostics Imaging Results: Imaging Impressions Chest X-Ray 02/20/18 20:40 Impression: 1. Status post mitral valvuloplasty. 2. Less pronounced right juxtaphrenic peaking, compared to 02/01/2018. Extremity Venous Study 02/20/18 20:56 Impression: There is no sonographic evidence of deep or superficial vein thrombosis in the left lower extremity. Findings were discussed with Varun Wilder MD at 21:26, on 02/20/2018. - Data Points Laboratory Results: Laboratory Results 02/20/18 20:50 02/20/18 20:50 02/20/18 02/20/18 02/20/18 20:55 20:50 20:50 WBC RBC Hgb Hct MCV MCH MCHC RDW Plt Count MPV Neut % (Auto) Lymph % (Auto) Bay % (Auto) Eos % (Auto) Baso % (Auto) Nucleat RBC Rel Count Absolute Neuts (auto) Absolute Lymphs (auto) Absolute Monos (auto) Absolute Eos (auto) Absolute Basos (auto) Absolute Nucleated RBC Immature Gran % Immature Gran # PT 13.1 SEC SEC (12.0-15.0) INR 0.97 (0.83-1.16) APTT 30.0 SEC SEC (23.0-38.0) D-Dimer 0.42 ug/mLFEU ug/mLFEU (0.00-0.50) Sodium 138 mEq/L mEq/L (135-145) Potassium 4.1 mEq/L mEq/L (3.5-5.2) Chloride 104 mEq/L mEq/L (97-110) Carbon Dioxide 24 mEq/l mEq/l (22-31) Anion Gap 10 mEq/L mEq/L (6-14) BUN 28 mg/dL H mg/dL (7-23) Creatinine 1.2 mg/dL H mg/dL (0.6-1.0) Estimated GFR 47 Glucose 94 mg/dL mg/dL (70-100) Calcium 10.2 mg/dL mg/dL (8.5-10.4) POC Troponin I 0.01 ng/mL ng/mL (0.00-0.08) 02/20/18 20:50 WBC 7.13 10^3/uL 10^3/uL (3.80-9.50) RBC 4.52 10^6/uL 10^6/uL (4.18-5.33) Hgb 13.1 g/dL g/dL (12.6-16.3) Hct 38.6 % % (38.0-47.0) MCV 85.4 fL fL (81.5-99.8) MCH 29.0 pg pg (27.9-34.1) MCHC 33.9 g/dL g/dL (32.4-36.7) RDW 13.2 % % (11.5-15.2) Plt Count 262 10^3/uL 10^3/uL (150-400) MPV 9.1 fL fL (8.7-11.7) Neut % (Auto) 51.8 % % (39.3-74.2) Lymph % (Auto) 29.0 % % (15.0-45.0) Bay % (Auto) 14.3 % H % (4.5-13.0) Eos % (Auto) 3.9 % % (0.6-7.6) Baso % (Auto) 0.7 % % (0.3-1.7) Nucleat RBC Rel Count 0.0 % % (0.0-0.2) Absolute Neuts (auto) 3.69 10^3/uL 10^3/uL (1.70-6.50) Absolute Lymphs (auto) 2.07 10^3/uL 10^3/uL (1.00-3.00) Absolute Monos (auto) 1.02 10^3/uL H 10^3/uL (0.30-0.80) Absolute Eos (auto) 0.28 10^3/uL 10^3/uL (0.03-0.40) Absolute Basos (auto) 0.05 10^3/uL 10^3/uL (0.02-0.10) Absolute Nucleated RBC 0.00 10^3/uL 10^3/uL (0-0.01) Immature Gran % 0.3 % % (0.0-1.1) Immature Gran # 0.02 10^3/uL 10^3/uL (0.00-0.10) PT INR APTT D-Dimer Sodium Potassium Chloride Carbon Dioxide Anion Gap BUN Creatinine Estimated GFR Glucose Calcium POC Troponin I Medications Given: Discontinued Medications Aspirin (Aspirin) 324 mg PO EDNOW ONE Stop: 02/20/18 20:41 Last Admin: 02/20/18 20:49 Dose: 324 mg Sodium Chloride (Ns) 500 mls @ 1,000 mls/hr IV EDNOW ONE PRN Reason: Protocol Stop: 02/20/18 21:09 Last Admin: 02/20/18 20:49 Dose: 500 mls Point of Care Test Results: Chemistry 02/20/18 20:55 POC Troponin I 0.01 ng/mL ng/mL (0.00-0.08) Departure - Departure Disposition: Home, Routine, Self-Care Clinical Impression: Chest discomfort Condition: Good Instructions: Chest Pain (ED) Additional Instructions: Read and follow provided instructions. Follow-up with your venture capitalist, Dr. Facundo Nayak, this week for re-evaluation. Return to the emergency department for worsening symptoms or other serious concerns. Referrals: Krys Hsu MD [Primary Care Provider] - As per Instructions
[2018-02-20 21:11] LABS: INR 0.97 (0.83-1.16); PROTIME(PATIENT) 13.1 SEC (12.0-15.0)
[2018-02-20 21:31] VITALS: BP 117/90
--- NOTE | 2018-02-21 22:14 | CPEKG ---
Test Reason : OPEN Blood Pressure : / mmHG Vent. Rate : 097 BPM Atrial Rate : 097 BPM P-R Int : 163 ms QRS Dur : 095 ms QT Int : 381 ms P-R-T Axes : 047 057 030 degrees QTc Int : 484 ms Sinus rhythm Confirmed by Varun Wilder ([id number]) on 02/21/2018 10:13:42 PM Referred By: Confirmed By:Varun Wilder
== END 2018-02-20 21:58 | disposition home or self-care (01) ==
DX: R07.9 Chest pain, unspecified (principal); M79.662 Pain in left lower leg; Z95.4 Presence of other heart-valve replacement; Z88.2 Allergy status to sulfonamides
CPT/HCPCS: 84484-ER

== ENCOUNTER 2018-02-22 17:22 | Observation (INO) | payer OTHER ==
[2018-02-22 17:51] LABS: PLATELET COUNT 269 10^3/uL (150-400)
[2018-02-22] MEDS ORDERED: NS 500 ML IV ONE (19:33)
[2018-02-22] MEDS ORDERED: IOPAMIDOL (ISOVUE 370) 100 ML BTL IV ONE (19:37)
[2018-02-22] MEDS ORDERED: KETOROLAC 15 MG/1 ML SDV IVP ONE (19:40)
[2018-02-22] MEDS ORDERED: MAG HYDROX/AL HYDROX/SIMETH 30 ML UDCUP PO ONE (19:43)
[2018-02-22] MEDS ORDERED: LIDOCAINE 2% VISCOUS 15 ML UDCUP PO ONE (19:43)
[2018-02-22] MEDS ORDERED: HYOSCYAMINE SULFATE 0.125 MG TAB PO ONE (19:43)
--- NOTE | 2018-02-22 19:50 | EDPHY ---
H & P Time Seen by Provider: 02/22/18 17:42 HPI/ROS: HPI Chest pain. 52-year-old female by private vehicle with her and daughters. This patient presents to the emergency department with complaint of chest pain. She reports that she started feeling mid substernal chest discomfort last night. She describes this as a burning sensation radiating up through her mid chest into her neck. She reports that it eased up a bit last night but she remained uncomfortable through the night. She reports that today it has gotten significantly worse particularly over the last few hours. I saw her in the emergency department on February 20 for similar complaints at that time she describes her discomfort as a pressure-like sensation in her upper anterior mid chest with some radiation into her neck. She had a negative workup at that time and elected to be discharged to home. She tells me now that she is much more uncomfortable. She does get some relief with sitting and leaning forward. She has had some associated shortness of breath with this pain as well. We received a call from a fire technology instructor Dr. Facundo Nayak. He is sending her over to the emergency department for evaluation and echocardiogram which he will read. ROS: Constitutional: No fever, no chills. No weakness. Eyes: No discharge. No changes in vision. ENT: No sore throat. No nasal congestion or rhinorrhea. Respiratory: No cough. As above. Cardiac: As above, no palpitations. Gastrointestinal: No abdominal pain, no vomiting, no diarrhea. Genitourinary: No hematuria. No dysuria or increased frequency with urination. Musculoskeletal: No back pain. No neck pain. No myalgias or arthralgias. Skin: No rashes. Neurological: No headache. No focal weakness or altered sensation. Past medical history: Sarcoidosis, tonsillectomy, close reduction of her fibula , hand surgery x2, cervical spine fusion, mitral valve repair in January of 2018. Social history: Nonsmoker. No alcohol. Here with her family. Physical Exam: General Appearance: Alert, she appears uncomfortable but not in distress. This patient is responding to questions appropriately and in full sentences. This patient appears well-hydrated and well-nourished. Eyes: Pupils equal and round no pallor or injection. No lid edema, erythema or injection. Respiratory: There are no retractions, lungs are clear to auscultation with good air movement bilaterally. Cardiovascular: Regular rate and rhythm. Low-grade tachycardia. No murmur appreciated. Chest wall is stable to AP and lateral palpation. No rashes. Gastrointestinal: Abdomen is soft and nontender, no masses, bowel sounds normal. No focal tenderness at McBurney's point. No Wiggins sign. Neurological: Motor sensory function is grossly intact. Cranial nerves are normal. Gait is normal. Skin: Warm and dry, no rashes. Musculoskeletal: Neck is supple and nontender. Extremities are symmetrical. All joints range without pain or impingement. Psychiatric: No agitation. No depression. Database: EKG: EKG time is 5:43 p.m.; EKG shows a narrow complex normal sinus rhythm with a ventricular rate of 109. The MD, QRS, QT intervals are within normal limits. There are no ST-T wave changes indicative of ischemic or injury pattern. No evidence of right heart strain. Interpreted by me. Imaging: Chest x-ray; the cardiac mediastinal silhouette is unremarkable. No evidence of infiltrate or pneumothorax. No acute cardiopulmonary disease process noted. Interpreted by me. Echocardiogram: Small pericardial effusion. Otherwise unremarkable study. Results were discussed with fire technology instructor Dr. Facundo Nayak. CT angiogram of chest: Negative for PE. Small pericardial effusion appreciated. No dissection process. Otherwise a normal study. Results were discussed with staff radiologist. Procedures: Emergency department course: Vital signs reviewed. She is mildly tachycardic. Vital signs are otherwise normal. She is afebrile. IV was placed. We are able to get her echocardiogram started shortly after she arrived to the emergency department. 7:40 p.m., I spoke with her fire technology instructor Dr. Facundo Nayak. We discussed the results of her echocardiogram. Reviewed her EKG and blood work, chest x-ray as well. His feeling is that her presentation is most consistent with a pericarditis. I agree. We discussed giving the patient a 1 time dose of IV Toradol as well as obtaining a CT angiogram of her chest for further evaluation and treatment of her pain. The patient has a low level elevation of her creatinine which is chronic. Dr. Nayak is aware of this as well. I discussed this personally with the patient my concern about giving Toradol as well as IV contrast enhancement on her CT. She likes to have this treatment and diagnostic study done knowing this. Both Dr. Nayak and I feel this is reasonable. She was started on IV normal saline with 500 cc to be given over the next hour. She was sent for CT imaging at 7:50 p.m.. She will receive a GI cocktail and 15 mg of IV Toradol when she returns. I will also treat her pain with narcotics if needed. I did discuss admission with her. At this time she does not want to be admitted but we will revisit this after have the results of her CTA and reassess her pain after IV Toradol and GI cocktail given. 8:35 p.m., patient re-evaluated. She had been given a GI cocktail. No relief from this. She would like IV Toradol given as above. She will be given 15 mg. She has some redness in her face and upper chest. She states that this came on after she was given the contrast dye for the CT. She does not have any airway issues and is not displaying any signs of anaphylaxis. She will also be given 25 mg of IV Benadryl. I discussed the results of her CT imaging with her and family. I discussed admission for observation and further evaluation overnight. She is now in agreement to be admitted. Hospitalist and fire technology instructor Dr. Facundo Nayak paged. 8:45 p.m., discussed patient's presentation and history with Dr. Natalee Caceres of the hospitalist service. Case discussed in detail with her. She accepts this patient for admission to telemetry observation. We have not been able to get a hold of Dr. Facundo Nayak. Hospitalist service will follow up on cardiology consultation. The patient was admitted to telemetry under the care of Dr. Caceres in stable and improved condition. Differential Diagnosis: The differential diagnosis on this patient includes but is not limited to pericarditis, myocarditis, esophageal spasm, GERD. Acute coronary syndrome, pulmonary embolism, aortic dissection unlikely. This represents a partial list of diagnoses considered. These considerations are based on history, physical exam, past history, reassessment and diagnostic testing. Smoking Status: Never smoked Constitutional: Initial Vital Signs Temperature (C) 36.5 C 02/22/18 17:34 Heart Rate 104 H 02/22/18 17:34 Respiratory Rate 18 02/22/18 17:34 Blood Pressure 118/88 H 02/22/18 17:34 O2 Sat (%) 98 02/22/18 17:34 O2 Delivery Mode Room Air Allergies/Adverse Reactions: Sulfa (Sulfonamide Antibiotics) Allergy (Verified 02/22/18 17:34) Rash Home Medications: Medication Instructions Recorded Acetaminophen [Tylenol Extra 1,000 mg PO BID PRN 02/22/18 Strength] Aspirin [Aspirin 81mg (*)] 81 mg PO DAILY 02/22/18 Calcium Carbonate [Tums 500MG (*)] 500 mg PO Q2 PRN 02/22/18 Ibuprofen [Motrin (*)] 600 mg PO DAILY PRN 02/22/18 Metoprolol Tartrate [Lopressor 50 50 mg PO BID 02/22/18 mg (*)] Omeprazole 40 mg PO DAILY PRN 02/22/18 Ranitidine HCl 150 mg PO DAILY 02/22/18 Medical Decision Making - Data Points Laboratory Results: Laboratory Results 02/22/18 17:43 02/22/18 17:43 Medications Given: Discontinued Medications Hydrocodone Bitart/Acetaminophen ([place] 5/325) 1 - 2 tab PO Q6H PRN PRN Reason: Pain, Moderate Able to Take PO Stop: 03/04/18 21:53 Last Admin: 02/22/18 22:46 Dose: 1 tab Al Hydroxide/Mg Hydroxide (Maalox Susp) 30 ml PO ONCE ONE Stop: 02/22/18 19:44 Last Admin: 02/22/18 20:04 Dose: 30 ml Aspirin (Aspirin) 81 mg PO DAILY RAUL Stop: 08/22/18 08:59 Last Admin: 02/23/18 08:43 Dose: 81 mg Colchicine (Colchicine) 0.6 mg PO BID RAUL Stop: 08/22/18 10:59 Last Admin: 02/23/18 11:17 Dose: 0.6 mg Diphenhydramine HCl (Benadryl Injection) 25 mg IVP EDNOW ONE Stop: 02/22/18 20:29 Last Admin: 02/22/18 20:32 Dose: 25 mg Hyoscyamine Sulfate (Levsin, Hyomax-Sl) 0.25 mg PO ONCE ONE Stop: 02/22/18 19:44 Last Admin: 02/22/18 20:04 Dose: 0.25 mg Sodium Chloride (Ns) 500 mls @ 1,000 mls/hr IV EDNOW ONE PRN Reason: Protocol Stop: 02/22/18 20:02 Last Admin: 02/22/18 20:03 Dose: 500 mls Ketorolac Tromethamine (Toradol) 15 mg IVP EDNOW ONE Stop: 02/22/18 19:41 Last Admin: 02/22/18 20:32 Dose: 15 mg Lidocaine (Lidocaine 2% Viscous) 15 ml PO ONCE ONE Stop: 02/22/18 19:44 Last Admin: 02/22/18 20:04 Dose: 15 ml Magnesium Hydroxide (Milk Of Magnesia) 30 ml PO DAILY PRN; Protocol PRN Reason: Constipation Stop: 08/21/18 22:03 Last Admin: 02/22/18 22:46 Dose: 30 ml Metoprolol Tartrate (Lopressor) 50 mg PO BID RAUL Stop: 08/21/18 21:59 Last Admin: 02/23/18 08:44 Dose: 50 mg Pantoprazole Sodium (Protonix) 40 mg PO DAILY PRN PRN Reason: Dyspepsia Stop: 08/21/18 23:14 Last Admin: 02/22/18 23:18 Dose: 40 mg Ranitidine HCl (Zantac) 150 mg PO DAILY RAUL Stop: 08/22/18 08:59 Last Admin: 02/23/18 08:45 Dose: 150 mg Senna/Docusate Sodium (Senokot-S) 1 - 2 tab PO BID RAUL PRN Reason: Protocol Stop: 08/22/18 08:59 Last Admin: 02/23/18 08:43 Dose: 1 tab Point of Care Test Results: Chemistry 02/22/18 17:46 POC Troponin I 0.01 ng/mL ng/mL (0.00-0.08) Departure - Departure Disposition: [facility] Acute Clinical Impression: Pericarditis, Chest pain
--- NOTE | 2018-02-22 21:09 | ECHO ---
[email or web address] [address] [address] Main: [phone] Fax: Transthoracic Echocardiogram Name: BRUNA MEJIA MR#: [id number] Study Date: 02/22/2018 Study Time: 06:44 PM Date of : 1965 Age: 52 year(s) Height: 167.6 cm (66 in.) Weight: 58.97 kg (130 lb.) BSA: 1.67 m2 Gender: Female Examination: Echo Indication: Chest Pain Image Quality: Adequate Contrast: Requested by: Varun De Los Santos BP: / Heart Rate: Rhythm: Indication: Chest Pain Procedure Staff Wood Setter: Toshia Weiner [facility] Reading Physician: Do Truong MD Requesting Provider: Conclusions: Normal size left ventricle. No LV hypertrophy. Normal global systolic LV function. EF is 57 %. No regional wall motion abnormality. Normal diastolic LV function. Normal size right ventricle. Normal RV function. The mitral valve is s/p repair. No MR or MS. . Right ventricular systolic pressure measures 27mmHg. Mild tricuspid regurgitation is present. Trivial anterior pericardial effusion. Compared with 07/25/2017 mitral valve has been repaired. Trivial pericardial effusion now present Measurements: Chambers Valvular Assessment AV/MV Valvular Assessment TV/PV Normal Normal Normal Name Value Range Name Value Range Name Value Range Ao Argelia (2D): 3.3 cm (1.4 cm-2.6 MV E Vmax: 0.95 m/s ( - ) TR Vmax: 2.32 mm/s ( - ) cm) MV A Vmax: 0.74 m/s ( - ) TR PGmax: 22 mmHg ( - ) IVSd (2D): 0.8 cm (0.6 cm-1.1 MV E/A: 1.28 ( - ) syst. PAP: 27 mmHg ( - ) cm) MV maxP mmHg ( - ) PV Vmax: 0.77 m/s (0.6 m/s-0.9 LVDd (2D): 4.7 cm (3.9 cm-5.3 MV meanP mmHg ( - ) m/s) cm) MV PHT: 0.047 s ( - ) PV PGmax: 2 mmHg ( - ) LVDs (2D): 3.1 cm (2.1 cm-4 cm) MVA (PHT): 4.7 s ( - ) LVPWd (2D): 0.8 cm ( - ) LVOTd 2.3 cm 2.3 cm mm LVEF (BP): 57 % (>=55 %) Patient: BRUNA MEJIA Study Date: 02/22/2018 Page 1 of 2 06:44 PM RVDd(2D): 2.3 cm (1.9 cm-3.8 cmmm) Continued Measurements: Chambers Valvular Assessment AV/MV Valvular Assessment TV/PV Name Value Name Value Name Value LADs: 3.1 cm MV DecTime: 162 m/s CVP (est.): 5 mmHg LADs Lon.9 cm MV E/E' Septal: 16.00 LA Area: 15.3 cm2 MV E/E' Lateral: 11.80 LA Volume: 40 ml MV VTI: 21.20 cm LA Volume Index: 24.0 ml/m2 RA Area: 15.0 cm2 Additional Vessels Name Value Ao Ascendin.5 cm Inferior Vena Cava: 1.3 cm Findings: Left Ventricle: Normal size left ventricle. No LV hypertrophy. Normal global systolic LV function. EF is 57 %. No regional wall motion abnormality. Normal diastolic LV function. Right Ventricle: Normal size right ventricle. Normal RV function. Left Atrium: The left atrium is normal in size. Right Atrium: The right atrium is normal in size. Mitral Valve: The mitral valve is s/p repair. No MR or MS. . Aortic Valve: The aortic valve is tri-leaflet. There is no significant aortic valve regurgitation. No aortic valve stenosis is present. Tricuspid Valve: The tricuspid valve is normal in appearance and function. The pulmonary artery pressure is normal. Right ventricular systolic pressure measures 27mmHg. Mild tricuspid regurgitation is present. Pulmonic Valve: The pulmonic valve is normal in appearance and function. Trivial pulmonic valve regurgitation. Aorta: The aorta is normal. Normal size aortic root measuring 3.3 cm. Normal size ascending aorta measuring 3.5 cm. IVC: The IVC is normal sized. Pericardium: Trivial anterior pericardial effusion. No pleural effusion. (No Signature Object) Patient: BRUNA MEJIA Study Date: 02/22/2018 Page 2 of 2 06:44 PM [id number]
[2018-02-22] MEDS ORDERED: HYDROCODONE/APAP 5/325 TAB PO PRN (21:54)
[2018-02-22] MEDS ORDERED: CALCIUM CARBONATE 500 MG CHEWABLE TAB PO PRN (21:55)
[2018-02-22] MEDS ORDERED: HYOSCYAMINE SULFATE 0.125 MG TAB PO PRN (22:04)
[2018-02-22] MEDS ORDERED: LACTULOSE 20 GM/30 ML UDCUP PO PRN (22:04)
[2018-02-22] MEDS ORDERED: LIDOCAINE 2% VISCOUS 15 ML UDCUP PO PRN (22:04)
[2018-02-22] MEDS ORDERED: MAGNESIUM HYDROXIDE 30 ML UDCUP PO PRN (22:04)
[2018-02-22] MEDS ORDERED: POLYETHYLENE GLYCOL 3350 17 GM PKT PO PRN (22:04)
[2018-02-22] MEDS ORDERED: BISACODYL 10 MG SUPP PR PRN (22:04)
[2018-02-22] MEDS ORDERED: MAG HYDROX/AL HYDROX/SIMETH 30 ML UDCUP PO PRN (22:04)
--- NOTE | 2018-02-22 22:43 | GHP ---
DATE OF ADMISSION: 02/22/2018 CHIEF COMPLAINT: Chest pain. HISTORY OF PRESENT ILLNESS: A 52-year-old female with mitral valve prolapse and repair January 21 at [facility] presenting with chest pain. She was seen here at [facility] ER on February 20 for chest discomfort , pressure-like in nature, in her upper anterior mid chest with some radiation to her neck. Had negative LE U/S at time and echo showed EF of 57%, no wall motion abnormalities, and a trivial pericardial effusion. She returns tonight with mid substernal chest discomfort, burning sensation radiating up to her mid chest, neck, and back. She has taken PPI, ranitidine, and Tums without relief. Pain is worse with deep inspiration and walking around. CTA in the ER was negative for PE. She was dosed Toradol for presumed pericarditis. She denies any recent URI or GI illnesses. She has had minimal release with that dose. REVIEW OF SYSTEMS: I completed a 10-point review of systems which was negative except as noted in HPI. PAST MEDICAL HISTORY: Sarcoid. PAST SURGICAL HISTORY: Tonsillectomy, internal reduction of her right fibula, hand surgery x2, cervical spine fusion, mitral valve repair January 2018, hysterectomy. SOCIAL HISTORY: She is a nonsmoker. She is an internal medicine physician. No alcohol, tobacco, or illicits. FAMILY HISTORY: noncontributory HOME MEDICATIONS: Aspirin 81 mg daily, metoprolol 50 mg b.i.d., Tylenol 1000 mg b.i.d., Advil p.r.n., Tums, omeprazole 40 mg p.r.n., ranitidine 150 mg daily. ALLERGIES: Sulfa with a rash. PHYSICAL EXAMINATION: VITAL SIGNS: Temperature 36.5, blood pressure 118/88, heart rate low 100s, respiration 16, 98% on room air. GENERAL: She is sitting up in stool, mildly uncomfortable but no acute distress. HEENT: PERRLA. Moist mucous membranes. CV: Regular rate and rhythm. No lower extremity edema. LUNGS: Clear. No crackles or wheezing. : No [place]. MUSCULOSKELETAL: Moving all 4 extremities. NEURO: 2 through 12 intact. PSYCH : Alert and oriented x3. LABORATORY DATA: 1. WBC 10, hemoglobin 13, hematocrit 42, platelets 269. D-dimer 0.49. Sodium 137, potassium 4.2, chloride 101, carbon dioxide 27, creatinine 1.1, calcium 10.1. BNP is 949. Troponin is 0.01. 2. CTA negative for pulmonary embolism. Stable bilateral pulmonary nodules. Unchanged mediastinal/hilar adenopathy. Trace pericardial effusion. 3. Chest x-ray personally reviewed by me. No effusion or opacity. 4. EKG personally reviewed by me. Normal sinus rhythm, tachy. ASSESSMENT AND PLAN: 1. Atypical chest pain: Suspect pericarditis. Has had an extensive evaluation including a negative CTA. Echocardiogram with normal EF. No wall motion abnormalities. Underwent cardiac cath in September 2017 with normal coronaries. No evidence of infection on exam or review of systems. Trial of one dose of Toradol with minimal improvement in the ER. caution with mild CKD. We will provide p.r.n. Vicodin and morphine overnight. Repeat BMP in the morning to determine if can trial NSAIDs. Dr. Nayak is aware of patient. 2. Recent mitral valve repair: Continue beta akz and aspirin. 3. Sarcoid: Stable adenopathy on CTA. 4. Gastroesophageal reflux disease: Ranitidine, PPI, GI cocktail as needed. 5. Diet: Regular. 6. Deep venous thrombosis prophylaxis: Low risk. 7. Disposition: Observation admission to PCU for telemetry, pain control. /[id number]/MODL MTDD
[2018-02-22] MEDS: METOPROLOL TARTRATE 50 MG TAB PO SCH (22:45)
[2018-02-22] MEDS ORDERED: PANTOPRAZOLE SODIUM 40 MG TAB PO PRN (23:15)
[2018-02-23] MEDS: METOPROLOL TARTRATE 50 MG TAB PO SCH (08:44)
[2018-02-23 08:45] VITALS: BP 94/61
[2018-02-23] MEDS ORDERED: SENNOSIDES/DOCUSATE SODIUM TAB PO SCH (09:00)
[2018-02-23] MEDS ORDERED: RANITIDINE HCL 150 MG/10 ML UDCUP PO SCH (09:00)
[2018-02-23] MEDS ORDERED: ASPIRIN 81 MG CHEWABLE TAB PO SCH (09:00)
--- NOTE | 2018-02-23 09:24 | HOSPPROG ---
Hospitalist Progress Note Assessment/Plan: 52 yo F w recent MV repair here w L sided CP, neg eval likely pericarditis home today see dc summary Subjective: improved w nsaids. no events tele Objective: Vital Signs Temp Pulse Resp BP Pulse Ox 36.9 C 98 16 94/61 L 97 02/23/18 08:15 02/23/18 08:44 02/23/18 08:15 02/23/18 08:44 02/23/18 08:15 Laboratory Results 02/23/18 03:50 02/22/18 02/23/18 02/24/18 05:59 05:59 05:59 Intake Total 900 Output Total 400 Balance 500 - Physical Exam Constitutional: no apparent distress, appears nourished Eyes: PERRL, anicteric sclera Ears, Nose, Mouth, Throat: moist mucous membranes, hearing normal Cardiovascular: regular rate and rhythym, no murmur, rub, or gallop Respiratory: no respiratory distress, no rales or rhonchi Gastrointestinal: normoactive bowel sounds, soft, non-tender abdomen Genitourinary: No maher in urethra Skin: warm, normal color, other (incisions c/d/i w no fluctuance) Musculoskeletal: full muscle strength Neurologic: AAOx3 ICD10 Worksheet Patient Problems: Problems Problem Status Onset Pericarditis Acute S/P bilateral salpingo-oophorectomy Acute S/P laparoscopic hysterectomy Acute
--- NOTE | 2018-02-23 10:42 | GDS ---
DISCHARGE DIAGNOSES: 1. Chest pain, likely secondary to pericarditis. 2. Recent mitral valve repair. Please see admission history and physical by Dr. Toshia aCceres. The patient presented with chest pa in. She had a negative CTA. She had an echocardiogram showing mitral repair valve, otherwise unrema rkable. She has not had heart failure symptoms. She had no events on telemetry. Serial troponins w ere negative. Incisions were clean, dry, and intact, and she did not have a fever. She had an EKG t hat showed no ischemic changes, nor was it particularly remarkable for pericarditis, but given her im provement with NSAIDs, this is a presumptive diagnosis. Echocardiogram did show a small pericardial effusion. She is discharged home on ibuprofen. The patient's physician understands the instructions . She was advised to seek care for fever, chills, or heart failure symptoms. /[id number]/MODL
[2018-02-23] MEDS ORDERED: COLCHICINE 0.6 MG CAP/TAB PO SCH (11:00)
--- NOTE | 2018-02-23 11:33 | ASDISCHSUM ---
Discharge Information Plan Status:Home with No Needs Medically Cleared to Leave:02/22/2018 Discharge Date:02/23/2018 11:22 AM CM D/C Disposition:Home, Routine, Self-Care ADT D/C Disposition:Home, Routine, Self-Care Projected Discharge Date:02/23/2018 11:22 AM Transportation at D/C: Discharge Delay Reason: Follow-Up Date:02/23/2018 11:22 AM Discharge Slot: Final Diagnosis: Placement Information Patient Contact Information Contact Name:ROBIN Relationship: Address:[address] [place] [address] City:[facility] Phone: [facility]/Zip Code:[place] [address] Email: Financial Information Financial Class:[facility] Primary Plan Desc:[facility] Primary Plan Number:[id number] Secondary Plan Desc: Secondary Plan Number: Assessment Information LACE LACE Length of stay for Answers: Less than 1 day current admission Acuity / Level of Answers: No Care: Did the patient have an inpatient admission? # of Emergency department Answers: 3-4 visits in the last 6 months Score: 3 Date Signed: 02/23/2018 11:32 AM Electronically Signed By:Kelsey Gonzales RN Intervention Information
--- NOTE | 2018-02-26 06:10 | CPEKG ---
Test Reason : OPEN Blood Pressure : / mmHG Vent. Rate : 109 BPM Atrial Rate : 109 BPM P-R Int : 155 ms QRS Dur : 094 ms QT Int : 351 ms P-R-T Axes : 050 071 033 degrees QTc Int : 473 ms Sinus tachycardia Confirmed by Randolph Donovan ([id number]) on 02/26/2018 6:10:18 AM Referred By: Confirmed By:Randolph Donovan
== END 2018-02-23 11:22 | disposition home or self-care (01) ==
LOC: F2W 22:07
PROVIDERS: ADMIT Internal Medicine; ATTEND Internal Medicine
DX: R07.89 Other chest pain (principal); K21.9 Gastro-esophageal reflux disease without esophagitis; D86.2 Sarcoidosis of lung with sarcoidosis of lymph nodes
CPT/HCPCS: 71045; 71275; 93005; 93306; 96374; 96375; 99285; G0378; 84484-ER; J1200; J1885; Q9967

== ENCOUNTER → 2018-08-10 | Outpatient (CLI) | payer OTHER | LOC: CIMAGING 20:24 ==